=== PATIENT | male | born 1960 | race Caucasian/White ===

== ENCOUNTER 2021-07-30 16:05 | Emergency (ER) | payer MEDICAID ==
[~2021-07-30] VITALS: Ht 160 cm; Wt 68.0 kg
[2021-07-30 16:07] VITALS: BP 113/58
--- NOTE | 2021-07-30 16:07 | NUR ---
Pt triaged and cleared to go to ED lobby. Pt placed in w/c and assisted to lobby by [facility].
--- NOTE | 2021-07-30 16:33 | NUR ---
BLOOD SUGAR 168 AT THIS TIME.
[2021-07-30] MEDS ORDERED: IBUPROFEN 600 MG TAB PO ONE (16:50)
--- NOTE | 2021-07-30 17:30 | NUR ---
c/o bug bite to right leg x9 days hx DM, HTN
[2021-07-30] MEDS ORDERED: IBUP-2213 PO (17:56)
[2021-07-30] MEDS ORDERED: CEPH-588 PO (17:56)
--- NOTE | 2021-07-30 18:10 | NUR ---
Patient discharged with v/s stable. Written and verbal after care instructions given and explained. Patient alert, oriented and verbalized understanding of instructions. Ambulatory with steady gait. All questions addressed prior to discharge. ID band removed. Patient advised to follow up with PMD. Rx of IBUPROFEN, KEFLEX given. Patient educated on indication of medication including possible reaction and side effects. Opportunity to ask questions provided and answered.
[2021-07-30 18:11] VITALS: BP 113/58
== END 2021-07-30 18:10 | disposition home or self-care (01) ==
LOC: MED 16:05
DX: M79.89 Other specified soft tissue disorders (principal)
CPT/HCPCS: 73590; 93971; 99284; Q0092